=== PATIENT | female | born 1930 | race Caucasian/White ===

== ENCOUNTER 2016-06-08 09:26 | Day surgery (SDC) | payer MEDICARE, OTHER ==
[~2016-06-08] VITALS: Ht 157.5 cm; Wt 84.0 kg
[~2016-06-08 09:26] MED LIST: ASPI-973 PO; ATEN25TA PO; AZU500 PO; Lactated Ringer's 1,000 ML IV ONE; OMEG-38 PO; PANT20TA2 PO; TRAM50TA2 PO
[2016-06-08] MEDS ORDERED: Propofol 10,000 mCg/mL 20 mL Inj ONE (09:27)
[2016-06-08 09:42] VITALS: BP 155/66; PULSE 90; RESP 14; O2SAT 93
--- NOTE | 2016-06-08 10:14 | PCM.HPANE ---
Patient Data Surgeon Admitting Provider: Attending Provider:Fede Ch MD Primary Care Physician:Chelsey Dupont Other Provider:Jake Pérez Anesthesia Reason for Visit Ulcerative Colitis Ht/WT & BMI Height (Feet): 5 Height (Inches): 2 Weight (Kilograms): 84 Body Mass Index 34.00 Allergies Coded Allergies: No Known Drug Allergies (Verified Allergy, Mild, 06/07/16) Past Anesthesia History Anesthesia History: Denies:: Abnormal Airway, Anesthesia Reactions, Difficult Intubation, Fam Anesthesia Reaction, Fam Malignant Hypertherm, Malignant Hyperthermia Diabetes History Hx Diabetes?: No MRSA MRSA: No Medications Blood Thinner: Aspirin Home Meds Incl Beta Fely: Yes Date Beta Fely Taken: Jun 07, 2016 Time Beta Fely Taken: 0900 Reported Medications Tramadol 50 Mg [id number] Mg PO BID PRN For Pain Ref 0 06/07/16 Sulfasalazine 500 Mg Tablet1,000 Mg PO BIDWM 30 Days Ref 0 06/07/[address] 20 Mg Tablet.dr20 Mg PO DAILY Ref 0 06/07/16 [place]-3/Dha/Epa/Fish Oil (Fish Oil 1,000 mg Softgel)1 Each Capsule1 Each PO 06/07/16 Atenolol 25 Mg Invjdk18 Mg PO DAILY #30 TABLET Ref 0 06/07/16 Aspirin 81 Mg Ahpqcb11 Mg PO DAILY Ref 0 06/07/16 Discontinued Reported Medications Cholecalciferol (Vitamin D3) (Vitamin D)1,000 Unit Tablet2,000 Unit PO DAILY #1 BOTTLE Ref 0 11/25/15 MULTIVIT, IRON, MIN NO. 8, FA-Expunged Drug, ([id number]-R-Txvzyvsf Drug, Do Not Renew!)1 Each Tablet1 Each PO DAILY 07/13/11 [place]-3/DHA/EPA/FISH OIL-Expunged Drug, Do No (FISH OIL 1,000 MG-Expunged Drug, Do Not Renew)1 Each Capsule2 Tab PO DAILY INSTRUCTED TO STOP 07/13/11 Aspirin-Expunged Drug, Do Not Renew! (Aspirin EC-Expunged Drug, Do Not Renew!) 81 Mg Xsglql77 Mg PO DAILY INSTRUCTED TO STOP 07/13/11 Sulfasalazine-Expunged Drug, Do Not Renew! 500 Mg Tablet1,000 Mg PO BID 07/13/11 Tramadol-Expunged Drug, Do Not Renew! 100 Mg Tab.[id number] Mg PO DAILY PRN For Pain 07/13/11 Atenolol-Expunged Drug, Do Not Renew! 25 Mg Daimbn42 Mg PO AM 07/13/11 History History of ENT Problems?: No HEENT History: Denies:: Abnormal Airway Difficult Intubation Hx of Heart Problems?: Yes Cardiovascular History: Positive for:: Hypertension (hyperlipidemia) Denies:: AICD Congestive Heart Failure Pacemaker Valvular Heart Disease Hx of Respiratory Problem?: No Respiratory History: Denies:: Tuberculosis Hx Neurologic Problems?: No Neurological History: Denies:: CVA Hx of GI Problems?: Yes Gastrointestinal History: Positive for:: Gastroesphageal Reflux Heartburn Denies:: Diverticulitis Gall Bladder Disease Liver Disease Rectal Bleeding Hx of Problems?: No Female Hx: Denies:: Currently Skin History: Positive for:: History Skin Disorders? (rash, hx of skin ca) Hx Musculoskeletal Problems?: Yes Musculoskeletal History: Positive for:: Degenerative Joint Joint Replacement (RT HIP) Denies:: Fibromyalgia Hx of Psycho/Social Problems?: No Psycho Social History: Positive for:: Hx Depression (SITUATIONAL) Denies:: Anxiety Hx Surgeries?: Yes (RIGHT HIP REPLACEMENT) Hx Any Other Health Problems?: Yes Other History: Positive for:: Thyroid Disease (hypothyroid-subclinical) Denies:: Cancer Endocrine Disease Hospitalization Hx Diabetes: No Hx Alcohol Use: NoHx Substance Use: No Smoking Status: Former Smoker Have You Smoked inLast 12 mo: No (quit /2 ppd) Stop/Bang Treated for Sleep Apnea?: No Do You Have a CPAP Machine?: No S-Snoring: Do You Snore Loudly: No T-Tired: feel tired, fatigued: No O-Obsered: Observed not breath: No P-Blood Pressure: treated: Yes B- Body Mass Index > 35 kg/m2: No A- Age over 50: Yes N- Neck Large Circumference: No G- Gender Male: No VERONIKA Total Score: 2 VERONIKA Risk Assessment: Low Risk, <3 Yes Risk Assessment Category Category 1A: Patient has history of documented sleep apnea, and HAS NOT received any narcotic, sedative or anesthesia administration during this stay. Category 1B: Patient has history of documented sleep apnea, and HAS received any narcotic , sedative or anesthesia administration during this stay Category 2: Patient has SUSPECTED Obstructive Sleep Apnea, and HAS received any narcotic , sedative or anesthesia administration during this stay. Category 3: Patient has SUSPECTED Obstructive Sleep Apnea and HAS NOT received narcotic, sedative or anesthesia administration during this stay. Category 4: Outpatient in Procedural Areas with known sleep apnea or who screen positive for High Risk via the STOP/BANG questionnaire. Exam Exam Vital Signs Vital Signs Date Time Temp Pulse Resp B/P Pulse Ox O2 Delivery O2 Flow Rate FiO2 06/08/16 09:42 37.6 90 14 155/66 93 Room Air General Appearance: Oriented X3 HEENT/AIRWAY: MP 2 Lungs: Normal Air Movement Heart: Regular Rate/Rhythm Plan Impression Patient chart reviewed, patient interviewed and anesthestic plan with risks, benefits, and alternatives discussed, and informed consent obtained. ASA Physical Status: ASA2 Mod Systemic Disease Anesthetic Plan: MAC Bene/Risks/Altern/Consents: Yes HP Complete Prior to Induction: Yes Cm Amos MD Jun 08, 2016 10:14
[2016-06-08] MEDS ORDERED: MetoCLOpramide 5 mg/mL 2 mL Inj IVPUSH PRN (10:15)
[2016-06-08] MEDS ORDERED: Ondansetron 2 mg/mL 2 mL Inj IVPUSH PRN (10:15)
[2016-06-08] MEDS: Lactated Ringer's 1,000 ML IV SCH ×2 (10:31→10:37)
[2016-06-08 10:48] VITALS: BP 93/60; PULSE 81; RESP 14; O2SAT 93
--- NOTE | 2016-06-08 10:52 | PCM.ANEP2 ---
Post Anesthesia Evaluation ASA/CMS Post Anesthesia VS in Patient's Normal Range?: Yes Resp Stable; Airway Patent?: Yes CV Function & Hydration Stable: Yes Mental Status Recovered?: Yes Pain control Satisfactory?: Yes N/V Control Satisfactory?: Yes Cm Amos MD Jun 08, 2016 10:52
--- NOTE | 2016-06-08 10:52 | PCM.ANEP1 ---
Post Anesthesia Phase 1 PACU Phase 1 Assessment Vital Signs Vital Signs Date Time Temp Pulse Resp B/P Pulse Ox O2 Delivery O2 Flow Rate FiO2 06/08/16 10:48 81 14 93/60 93 Nasal Cannula 2 06/08/16 09:42 37.6 90 14 155/66 93 Room Air Anesthetic Administered: MAC Level of Alertness: Awake, talking Pain: No Nausea or Vomiting: No Oxygen Delivery: Room Air Lungs: Normal Air Movement Cm Amos MD Jun 08, 2016 10:52
[2016-06-08 10:55] VITALS: BP 116/60; PULSE 75; RESP 14; O2SAT 98
[2016-06-08 11:05] VITALS: BP 108/62; PULSE 83; RESP 14; O2SAT 98
--- NOTE | 2016-06-08 11:15 | ENDO ---
[address] [address] ENDOSCOPY PROCEDURE PATIENT: ALYSIA MONCADA : 1930 MR#: [id number] ADMIT: 06/08/2016 JOB ID: [id number] DATE: 06/08/2016 TYPE OF OPERATION: Colonoscopy with biopsy. PREOPERATIVE DIAGNOSIS(ES): Ulcerative colitis and family history of colon cancer. POSTOPERATIVE DIAGNOSIS(ES): 1. Zhang diverticulosis from the ascending colon to the sigmoid colon. 2. Small internal hemorrhoids. ANESTHESIA: Monitored anesthesia care. COMPLICATIONS: None. BLOOD LOSS: Minimal. DESCRIPTION OF PROCEDURE: After the risks and benefits were explained to the patient, informed consent was obtained. After anesthesia administered, the colonoscope was inserted per the rectum to the cecum. Mucosa carefully examined. Prep of the patient was excellent. After procedure was done, the scope withdrawn and procedure terminated. FINDINGS: Upon inspection of the anus, no masses, hemorrhoids, ulcers, or fissures that were seen. Throughout the entire examination, there were no polyps, masses, or lesions. Biopsies taken at 70 cm and every 10 cm, 60, 50, 40, 30, 20 and 10 to evaluate for dysplasia given a history of ulcerative colitis. Retroflexion showed small internal hemorrhoids. IMPRESSION: 1. Small internal hemorrhoids. 2. Zhang diverticulosis. RECOMMENDATIONS: 1. High-fiber diet. 2. If the biopsy showed no dysplasia, I recommend annual colonoscopy in one year for screening given history of ulcerative colitis.
--- NOTE | 2016-06-11 15:07 | PATH ---
SURGICAL PATHOLOGY Attending Physician:Fede Ch MD CASE STATUS: Signed Out PATIENT NAME: ALYSIA MONCADA PID: [id number] : 1930 DATE COLLECTED:06/08/2016 16:49 SPECIMEN: 1: Anus, Biopsy 2: Colon, Biopsy 3: Colon, Biopsy 4: Colon, Biopsy 5: Colon, Biopsy 6: Colon, Biopsy 7: Colon, Biopsy CLINICAL HISTORY: 1: BIOPSY AT 70 CM FROM ANUS 2: BIOPSY AT 60CM 3: BIOPSY AT 50CM 4: BIOPSY AT 40CM 5: BIOPSY AT 30CM 6: BIOPSY AT 20CM 7: BIOPSY AT 10CM FINAL DIAGNOSIS: 1. Biopsy at 70 CM: Colonic mucosa with no diagnostic alterations. Negative for active or chronic inflammation. Negative for dysplasia and malignancy. 2. Biopsy at 60 CM: Colonic mucosa with no diagnostic alterations. Negative for active or chronic inflammation. Negative for dysplasia and malignancy. 3. Biopsy at 50 CM: Colonic mucosa with no diagnostic alterations. Negative for active or chronic inflammation. Negative for dysplasia and malignancy. 4. Biopsy at 40 CM: Colonic mucosa with no diagnostic alterations. Negative for active or chronic inflammation. Negative for dysplasia and malignancy. 5. Biopsy at 30 CM: Colonic mucosa with no diagnostic alterations. Negative for active or chronic inflammation. Negative for dysplasia and malignancy. 6. Biopsy at 20 CM: Colonic mucosa with no diagnostic alterations. Negative for active or chronic inflammation. Negative for dysplasia and malignancy. 7. Biopsy at 10 CM: Colonic mucosa with no diagnostic alterations. Negative for active or chronic inflammation. Negative for dysplasia and malignancy. ICD10 K51.9 GROSS DESCRIPTION: The specimen is received in seven formalin filled containers labeled with the patient's name. 1). The specimen is sublabeled "70 CM" and consists of 2 portions of tissue which aggregate to 0.6 x 0.3 x 0.2 CM. The specimen is entirely submitted in cassette 1A. 2). The specimen is sublabeled "60 CM" and consists of 2 portions of tissue which aggregate to 3.4 x 0.4 x 0.2 CM. The specimen is entirely submitted in cassette 2A. 3). The specimen is sublabeled "50 CM" and consists of a 0.2 x 0.2 x 0.2 CM portion of tissue which is entirely submitted in cassette 3A. 4). The specimen is sublabeled "40 CM" and consists of 2 portions of tissue which aggregate to 0.3 x 0.3 x 0.2 CM. The specimen is entirely submitted in cassette 4A. 5). The specimen is sublabeled "30 CM" and consists of 2 portions of tissue which aggregate to 0.4 x 0.3 x 0.2 CM. The specimen is entirely submitted in cassette 5A. 6). The specimen is sublabeled "20 CM" and consists of 2 portions of tissue which aggregate to 0.3 x 0.3 x 0.2 CM. The specimen is entirely submitted in cassette 6A. 7). The specimen is sublabeled "10 CM" and consists of 3 portions of tissue which aggregate to 0.5 x 0.3 x 0.2 CM. The specimen is entirely submitted in cassette 7A. 06/08/2016 [place] MICRO DESCRIPTION: Please see diagnosis. ICD-9 CODES: CPT CODES: 1: 14571 2: 63787 3: 28282 4: 74910 5: 68792 6: 45038 7: 36008 Electronically Signed Out Elaina Egan MD [facility] [address], [place] [address] Technical component performed at [facility], [facility] [address], [place], [address]
== END 2016-06-08 23:59 | disposition home or self-care (01) ==
LOC: END 09:26
PROVIDERS: ATTEND Internal Medicine Gastroenterology
DX: K57.30 Diverticulosis of large intestine without perforation or abscess without bleeding (principal); K64.8 Other hemorrhoids; Z80.0 Family history of malignant neoplasm of digestive organs; K21.9 Gastro-esophageal reflux disease without esophagitis; E78.5 Hyperlipidemia, unspecified; M16.10 Unilateral primary osteoarthritis, unspecified hip; M81.0 Age-related osteoporosis without current pathological fracture; E55.9 Vitamin D deficiency, unspecified; Z79.82 Long term (current) use of aspirin
CPT/HCPCS: 45380; 88305; J7120

== ENCOUNTER 2017-01-21 13:47 | Emergency (ER) | payer MEDICARE, OTHER ==
[~2017-01-21] VITALS: Ht 157.5 cm; Wt 82.7 kg
[~2017-01-21 13:47] MED LIST changes: -Lactated Ringer's 1,000 ML IV ONE
[2017-01-21 13:50] VITALS: BP 130/75; PULSE 89; RESP 18; O2SAT 96
[2017-01-21] MEDS ORDERED: 0.9% Sodium Chloride 1,000 ML IV ONE ×2 (14:51→16:35)
--- NOTE | 2017-01-21 14:51 | ED.REPORT ---
HPI-General Illness Date of Service Jan 21, 2017 ED Provider: Alfred Bennett PA-C Nursing Notes Stated Complaint: WEAKNESS Chief Complaint: General Complaint Allergies: Coded Allergies: No Known Drug Allergies (Verified Allergy, Mild, 06/07/16) Scheduled Aspirin (Aspirin) 81 Mg Tablet 81 MG PO DAILY Atenolol (Atenolol) 25 Mg Tablet 25 MG PO DAILY Pantoprazole DR (Pantoprazole DR) 20 Mg Tablet.dr 20 MG PO DAILY Sulfasalazine (Sulfasalazine) 500 Mg Tablet 1,000 MG PO BIDWM Scheduled PRN Tramadol (Tramadol) 50 Mg Tablet 50 MG PO BID PRN PRN For Pain Miscellaneous Medications [place]-3/Dha/Epa/Fish Oil (Fish Oil 1,000 mg Softgel) 1 Each Capsule 1 EACH PO General Time Seen by MD: 14:50 Past Medical History Past Medical History Hypothyroid Hyperlipidemia GERD DJD Previous skin cancer Past Surgical History Endoscopy Smoking History Former Smoker Social History Other Social History: Ambulatory Status Independent Physical Exam Vital Signs Vital Signs Date Time Temp Pulse Resp B/P Pulse Ox O2 Delivery O2 Flow Rate FiO2 01/21/17 13:50 37.1 89 18 130/75 96 Room Air Discharge & Departure Referrals: Chelsey Dupont (PCP) Xander Gusman MD Jan 21, 2017 14:51
[2017-01-21 15:23] LABS: BASOPHILS % (AUTO) 0.4 % (0-3); EOSINOPHILS % (AUTO) 1.5 % (0-5); MONOCYTES % (AUTO) 8.8 % (4-12); Mean Corpuscular Hemoglobin 30.6 pg (27.0-35.0); Mean Corpuscular Volume 91.6 fL (81-100); NEUTROPHILS % (AUTO) 61.5 % (40-74); Platelet Count 240 bil/L (150-400)
--- NOTE | 2017-01-21 15:26 | ED.REPORT ---
HPI-Dizziness / Weakness Date of Service Jan 21, 2017 ED Provider: Alfred Bennett PA-C Barbara is a 86 female with a history of hypertension and ulcerative colitis presenting to the emergency department with a chief complaint of weakness. Patient reports that 10 days ago she had all of her teeth removed, and she has not felt well since then. She complains of general weakness as well as increased forgetfulness and confusion. Associated with mild headache that originates at the left ear and responds well to ibuprofen. Her daughter states that the patient was at times "incoherent." Reports reduced oral intake secondary to painful dentures. Follow-up examination with her oral surgeon was reassuring per the patient's report. Patient reports taking prophylactic antibiotics as directed before and after her surgery. Denies cardiac history. Denies chest pain, palpitations, shortness of breath, cough, wheeze, abdominal pain, vomiting, diarrhea, urinary symptoms, fever, shaking chills, unilateral weakness, severe headache, vision changes. Nursing Notes Stated Complaint: WEAKNESS Chief Complaint: General Complaint Nursing Notes Reviewed: Yes Allergies: Coded Allergies: No Known Drug Allergies (Verified Allergy, Mild, 06/07/16) Scheduled Aspirin (Aspirin) 81 Mg Tablet 81 MG PO DAILY Atenolol (Atenolol) 25 Mg Tablet 25 MG PO DAILY Pantoprazole DR (Pantoprazole DR) 20 Mg Tablet.dr 20 MG PO DAILY Sulfasalazine (Sulfasalazine) 500 Mg Tablet 1,000 MG PO BIDWM Scheduled PRN Tramadol (Tramadol) 50 Mg Tablet 50 MG PO BID PRN PRN For Pain Miscellaneous Medications [place]-3/Dha/Epa/Fish Oil (Fish Oil 1,000 mg Softgel) 1 Each Capsule 1 EACH PO General Time Seen by MD: 14:50 Chief Complaint Generalized weakness Past Medical History Past Medical History Hypothyroid Hyperlipidemia GERD DJD Previous skin cancer Past Surgical History Endoscopy Smoking History Former Smoker Social History Other Social History: Ambulatory Status Independent Review of Systems General: Denies fever, chills. HEENT: Denies congestion, headache, sore throat. Respiratory: Denies dyspnea, cough, shortness of breath, wheezing. Cardiovascular: Denies chest pain, palpitations. Gastrointestinal: Denies vomiting, diarrhea, abdominal pain. Genitourinary: Denies frequency, urgency, dysuria, hematuria. Otherwise as noted in HPI. Physical Exam General: Well appearing, well developed, well nourished, no acute distress. Head: Atraumatic, normocephalic. No mastoid tenderness. Eyes: No scleral icterus or injection. No discharge. PERRL. Vision grossly intact. Ears: Pinna and tragus nontender with manipulation. External auditory canal patent, atraumatic and without discharge. Tympanic membrane arango, shiny and translucent without fluid, bulging, retraction or perforation. Hearing grossly intact. Nose: Symmetrical, nares patent without discharge. No frontal or maxillary sinus tenderness. Mouth/pharynx: Edentulous. Sites of recent tooth extraction appear to be healing well without swelling, redness, discharge. There is a small hematoma noted on the left upper gum. mucus membranes slightly tacky. Tonsils 2+ and symmetrical, uvula midline. Pharynx noninjected, no cobblestoning or discharge. Voice clear. Neck: No tenderness or lymphadenopathy. Trachea midline. Respiratory: Regular rate and rhythm. Breath sounds present, clear to auscultation and equal bilaterally. No respiratory distress. No increased work of breathing, speaks in complete sentences. Cardiovascular: Regular rate and rhythm, without murmur, gallop or rub. No pedal edema. Gastrointestinal: Abdomen flat and non-tender without guarding or rebound. Bowel sounds normoactive. Skin: Warm and dry. Neurological: Normal finger-nose, heel-esteves. Some difficulty with rapid hand ( rapid opening and closing of the first digit to the third digit pincer grasp) bilaterally. Negative pronator drift. Sensation grossly intact in extremities. Cranial nerves: Vision grossly intact, PERRL, EOMI. Facial motion symmetrical, sensation to light touch over forehead, maxilla and mandible present and equal B /L. Voice clear and fluent, no drooling/pooling of saliva, uvula rises midline. Psychological: Alert and oriented. Speech appropriate, linear and logical. Behavior appropriate. The patient does have minimal difficulty in following instructions during the neurological examination. Initial Vital Signs Vital Signs (First) Date Time Temp Pulse Resp B/P Pulse Ox O2 Delivery O2 Flow Rate FiO2 01/21/17 13:50 37.1 89 18 130/75 96 Room Air Interpretation & Diagnostics Lab Results Interpretation Result Diagram: 01/21/17 1519 01/21/17 1519 Test 01/21/17 15:11 9/4/17 15:19 Urine Color Yellow (YELLOW) Urine Appearance Clear (CLEAR,HAZY) Urine pH 5.5 (5.0-8.0) Urine Specific [place] 1.010 (1.003-1.035) Urine Protein Negativemg/dL (NEG,TRACE) Urine Glucose (UA) Negativemg/dL (NEGATIVE) Urine Ketones Negativemg/dL (NEGATIVE) Urine Occult Blood Negative (NEGATIVE) Urine Nitrite Negative (NEGATIVE) Urine Bilirubin Negative (NEGATIVE) Urine Urobilinogen Normalmg/dL (NORMAL) Urine Leukocyte Esterase Trace (NEGATIVE) Urine RBC 0-2/hpf (0-2) Urine WBC 0-5/hpf (0-5) Urine Epithelial Cells Occasional/hpf (NONE-MOD) Urine Crystals None seen (NONE SEEN) Urine Bacteria None/hpf (NONE-FEW) Urine Hyaline Casts None/lpf (NONE) Urine Granular Casts None seen (NONE SEEN) Urine Waxy Casts None seen (NONE SEEN) Urine Red Blood Cell Casts None seen (NONE SEEN) Urine White Blood Cell Casts None seen (NONE SEEN) Urine Mucus None seen (None Seen) Urine Trichomonas None seen (NONE SEEN) Urine Yeast None (NONE SEEN) Urinalysis Comment None Urine Culture Reflexed Not indicated White Blood Count 6.8th/mm3 (3.8-10.1) Red Blood Count 4.15mil/mm3 (3.90-5.20) Hemoglobin 12.7g/dL (12.0-15.6) Hematocrit 38.0% (35.0-46.0) Mean Corpuscular Volume 91.6fL (81-100) Mean Corpuscular Hemoglobin 30.6pg (27.0-35.0) Mean Corpuscular Hemoglobin Concent 33.4% (32.0-37.0) Red Cell Distribution Width 13.0% (12.3-15.4) Platelet Count 240bil/L (150-400) Neutrophils (%) (Auto) 61.5% (40-74) Lymphocytes (%) (Auto) 27.5% (14-46) Monocytes (%) (Auto) 8.8% (4-12) Eosinophils (%) (Auto) 1.5% (0-5) Basophils (%) (Auto) 0.4% (0-3) Sodium Level 136mEq/L (134-144) Potassium Level 4.3mEq/L (3.5-5.2) Chloride Level 98mEq/L (97-108) Carbon Dioxide Level 22mmol/L (18-29) Blood Urea Nitrogen 14mg/dL (8-27) Creatinine 0.73mg/dL (0.57-1.00) Estimat Glomerular Filtration Rate 109mL/min (>59) Glucose Level 111mg/dL (60-99) Lactic Acid Level 1.3mmol/L (0.4-2.0) Calcium Level 9.1mg/dL (8.5-10.1) Magnesium Level 2.2mg/dL (1.6-2.6) Total Bilirubin 0.4mg/dL (0.0-1.2) Aspartate Amino Transf (AST/SGOT) 13U/L (0-50) Alanine Aminotransferase (ALT/SGPT) 11U/L (0-32) Alkaline Phosphatase 70U/L (25-165) Troponin T < 0.010ug/L (0.0-0.011) Total Protein 7.0g/dL (6.4-8.4) Albumin 4.1g/dL (3.4-5.0) ECG Interpretation ECG Interpretation: Sinus rhythm with a rate of 80 regular. Negative for ischemic changes Time: 15:41 Interpreted by: ED physician (Dr. Gusman) X-Ray Chest Interpretation Chest Xray Interpretation: PROCEDURE: X-RAY CHEST ONE VIEW, PORTABLE ([id number]) INDICATIONS: weakness IMPRESSION: 1. Findings compatible with COPD redemonstrated without acute consolidation. Re-Eval/Medical Decision Med Decision/Clinical Course Relatively healthy 86-year-old female presents to emergency Department chief complaint of weakness and confusion in the 10 days since having all remaining teeth removed. Denies other symptoms. Physical examination reveals sites of dental extraction healing well, small hematoma on the right upper gum, slightly tacky mucous membranes. Neurological examination is normal with the exception of some difficulty with rapid hand examination bilaterally. She does have some difficulty following instructions. She is alert and oriented, provided a good history that is corroborated by her daughter. Physical examination is otherwise benign. Vital signs normal. Initiated septic workup including CBC, CMP, lipase, blood cultures, chest x-ray , EKG, urinalysis. Blood tests are unremarkable. Chest x-ray shows a COPD pattern, for acute pathology. EKG is normal, urinalysis is normal. Patient feels significantly improved after 1 L of normal saline, but feels she would benefit from a second. Given her normal kidney function feels reasonable. Second liter is provided. Patient is assisted to the bathroom by her nurse, who reports she ambulates well. Following second liter of normal saline patient feels improved and wishes to be discharged home. I am reassured against ACS, pneumonia, urinary tract infection , sepsis, CVA/TIA. I discussed the case with Dr. Gusman, who expresses agreement. Advised regarding primary care follow-up, provided emergency return precautions. Patient verbalized understanding of, and consent to, the plan. Patient Discharge & Departure Impression: Primary Impression: Weakness Additional Impression: Dehydration Disposition: Home Discharge Condition All VS Reviewed: Yes Condition: Stable Patient Instructions: Weakness (ED) Additional Instructions: Evaluation for weakness and confusion in the emergency department include interview, physical examination, blood tests, urinalysis, chest x-ray EKG all of which are reassuring that this is unlikely to be caused by an immediately dangerous condition. We believe you are stable and safe to go home. Stay hydrated by drinking small amounts of fluid throughout the day. I typically recommend apple juice diluted with water. Rehydration solutions such as Pedialyte are also good choices. Avoid soft drinks or coffee. Eat soft, bland foods as tolerated. Follow-up with your primary care provider in a day or 2 to be sure this is progressing as expected. Return to emergency department for any new or worsening symptoms including chest pain, shortness of breath, fever, feeling ill, increasing weakness. Referrals: Chelsey Dupont (PCP) EDSupervising Provider for APC: Xander Gusman MD, Sarah M ARNP Turner, Seth PA-C Jan 21, 2017 15:26
[2017-01-21 15:33] LABS: APPEARANCE,URINE CLEAR (CLEAR,HAZY); COLOR,URINE YELLOW (YELLOW); OCCULT BLOOD,URINE NEGATIVE (NEGATIVE); PH,URINE 5.5 (5.0-8.0); UROBILINOGEN,URINE NORMAL (NORMAL)
[2017-01-21 15:34] VITALS: BP 149/53; PULSE 78; RESP 20; O2SAT 97
[2017-01-21 15:46] LABS: TROPONIN T < 0.010 ug/L (0.0-0.011)
[2017-01-21 15:55] LABS: Magnesium 2.2 mg/dL (1.6-2.6)
--- NOTE | 2017-01-21 16:07 | DRSVH ---
PROCEDURE: X-RAY CHEST ONE VIEW, PORTABLE ([id number]) INDICATIONS: weakness TECHNIQUE: One view of the chest was acquired. COMPARISON: [facility], CR, XR CHEST 2VW, 08/24/2015, 15:45. [facility], CR , XR CHEST 1VW (PORTABLE), 11/25/2015, 15:30. FINDINGS: Surgical changes and devices: None. Lungs and pleura: No pleural effusions or pneumothorax. There is hyperinflation of the lungs with f lattening of the hemidiaphragms compatible with COPD. No acute consolidation. Mediastinum: Mediastinal contours appear normal. Heart size is normal. Bones and chest wall: No suspicious bony lesions. Overlying soft tissues appear unremarkable. IMPRESSION: 1. Findings compatible with COPD redemonstrated without acute consolidation. Dictated by: Silvio Tee M.D. on 01/21/2017 at 16:04 Approved by: Silvio Tee M.D. on 01/21/2017 at 16:05
[2017-01-21 16:47] VITALS: BP 143/44; PULSE 78; RESP 25; O2SAT 98
[2017-01-21 17:24] VITALS: BP 152/56; PULSE 76; RESP 18; O2SAT 99
== END 2017-01-21 17:29 | disposition home or self-care (01) ==
LOC: SED 13:47
DX: R53.1 Weakness (principal); E86.0 Dehydration; K21.9 Gastro-esophageal reflux disease without esophagitis; E78.5 Hyperlipidemia, unspecified; Z87.891 Personal history of nicotine dependence; Z85.828 Personal history of other malignant neoplasm of skin
CPT/HCPCS: 36415; 71010; 80053; 81000; 83605; 83735; 84484; 85025; 87040; 93005; 96360; 96361; 99285; J7030